=== PATIENT | female | born 1985 | race Caucasian/White ===

== ENCOUNTER 2020-09-03 07:46 | Emergency (ER) | payer MEDICAID ==
[2020-09-03 08:03] VITALS: BP 148/92; PULSE 72
[2020-09-03] MEDS ORDERED: Bacitracin Oint 1 GM U/D Packet TOP ONE (08:17)
--- NOTE | 2020-09-03 08:23 | EDM.PDOC ---
ED HPI GENERAL MEDICAL PROBLEM - General Chief Complaint: Laceration Stated Complaint: INJURY ON LEFT FOOT Time Seen by Provider: 09/03/20 08:10 Source of Information: Reports: Patient, Old Records, RN History Limitations: Reports: No Limitations - History of Present Illness INITIAL COMMENTS - FREE TEXT/NARRATIVE: 35 yo female here with a laceration to the R great toe MT joint area from about 0730h today. Tetanus is UTD. Bumped her couch causing the wound. 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: Other (see below) (none) Left Feet Pain Score (Numeric/FACES): 3 - Related Data Allergies Allergy/AdvReac Type Severity Reaction Status Date / Time lavender (Lavandula Allergy Burning Verified 01/30/16 13:15 angustifolia) Home Meds: Home Meds Pnv95/Iron Fum/Folic Acid [ Caplet] 1 tab PO DAILY 12/26/15 [History] Past Medical History Respiratory History: Reports: Asthma Genitourinary History: Reports: UTI, Recurrent [employer]OR History: Reports: - Past Surgical History GI Surgical History: Reports: Cholecystectomy Female Surgical History: Reports: Section Social & Family History - Tobacco Use Tobacco Use Status *Q: Never Tobacco User - Caffeine Use Caffeine Use: Reports: Coffee - Recreational Drug Use Recreational Drug Use: No ED ROS GENERAL - Review of Systems Review Of Systems: See Below Constitutional: Reports: No Symptoms Skin: Reports: Wound (L foot) Neurological: Reports: No Symptoms ED EXAM, SKIN/RASH Exam: See Below Exam Limited By: No Limitations General Appearance: Alert, WD/WN, No Apparent Distress Extremities: Other (nonbleeding linear wound to the medial L great toe MT joint area. ) Neurological: Alert, Oriented, CN II-XII Intact, Normal Cognition, No Motor/Sensory Deficits Psychiatric: Normal Affect, Normal Mood Skin: Warm, Dry, Intact, Normal Color, No Rash Location, Skin: Lower Extremity, Left Characteristics: Linear Associated features: No: Warmth, Tenderness, Swelling, Lymphangitis Course - Vital Signs Text/Narrative:: Wound cleaned and dressed by RN. No sutures needed as wound edges are well approximated. Last Recorded V/S: Last Vital Signs Temp 35.8 C L 09/03/20 08:01 Pulse 72 09/03/20 08:01 Resp 18 09/03/20 08:01 BP 148/92 H 09/03/20 08:01 Pulse Ox - Orders/Labs/Meds Orders: Active Orders 24 hr Category Date Time Status Bacitracin [Bacitracin Oint 1 GM] Med 09/03/20 08:17 Once 1 dose TOP ONETIME ONE Departure - Departure Time of Disposition: 08:30 Disposition: Home, Self-Care 01 Condition: Good Clinical Impression: Laceration of left foot Qualifiers: Encounter type: initial encounter Qualified Code(s): S91.312A - Laceration without foreign body, left foot, initial encounter - Discharge Information *PRESCRIPTION DRUG MONITORING PROGRAM REVIEWED*: Not Applicable *COPY OF PRESCRIPTION DRUG MONITORING REPORT IN PATIENT JEWEL: Not Applicable Instructions: Nonsutured Laceration Care Referrals: PCP,None [Primary Care Provider] - Additional Instructions: Leave current dressing on x 24 hrs, then change twice daily. Recommend soap and water cleaning, followed by thorough drying, and then antibiotic ointment and a new dressing. Recheck for signs of infection. Acetaminophen for pain relief. Sepsis Event Note (ED) - Evaluation Sepsis Screening Result: No Definite Risk - Focused Exam Vital Signs: Vital Signs Temp Pulse Resp BP 09/03/20 08:01 35.8 C L 72 18 148/92 H - My Orders Last 24 Hours: My Active Orders 09/03/20 08:17 Bacitracin [Bacitracin Oint 1 GM] 1 dose TOP ONETIME ONE - Assessment/Plan Last 24 Hours: My Active Orders 09/03/20 08:17 Bacitracin [Bacitracin Oint 1 GM] 1 dose TOP ONETIME ONE
== END 2020-09-03 08:34 | disposition home or self-care (01) ==
LOC: JP.ED 07:46
DX: S91.112A Laceration without foreign body of left great toe without damage to nail, initial encounter (principal); J45.909 Unspecified asthma, uncomplicated; Z88.8 Allergy status to other drugs, medicaments and biological substances; X58.XXXA Exposure to other specified factors, initial encounter
CPT/HCPCS: 99282